=== PATIENT | female | born 1935 | race Caucasian/White ===

== ENCOUNTER 2018-09-22 09:31 | Emergency (ER) | payer OTHER ==
[~2018-09-22] VITALS: Ht 157.5 cm; Wt 66.2 kg
[2018-09-22] MEDS ORDERED: ORAPRED ODT10 MG PO (09:39)
[2018-09-22] MEDS ORDERED: METHOTREXA25 MG/1 M5 IJ (09:40)
[2018-09-22] MEDS ORDERED: AVAPRO300 MG PO (09:40)
== END 2018-09-22 13:58 | disposition home or self-care (01) ==
LOC: ER 09:31
DX: J06.9 Acute upper respiratory infection, unspecified (principal); E86.0 Dehydration

== ENCOUNTER 2019-01-27 08:15 | Emergency (ER) | payer OTHER ==
[~2019-01-27] VITALS: Ht 248.9 cm; Wt 68.9 kg
[~2019-01-27 08:15] MED LIST: AVAPRO300 MG PO; METHOTREXA25 MG/1 M5 IJ; ORAPRED ODT10 MG PO
[2019-01-27] MEDS ORDERED: LEXAPRO20 MG PO (08:32)
[2019-01-27] MEDS ORDERED: COZAAR50 MG PO (08:32)
== END 2019-01-27 14:30 | disposition home or self-care (01) ==
LOC: ER 08:15
DX: R07.89 Other chest pain (principal)

== ENCOUNTER 2021-05-19 16:44 | Emergency (ER) | payer OTHER ==
[~2021-05-19] VITALS: Ht 160 cm; Wt 79.4 kg
[~2021-05-19 16:44] MED LIST changes: +COZAAR50 MG PO; +LEXAPRO20 MG PO
[2021-05-19] MEDS ORDERED: DICLOFENAC SODI75 MG PO (18:26)
== END 2021-05-19 19:05 | disposition home or self-care (01) ==
LOC: ER 16:44
DX: M94.0 Chondrocostal junction syndrome [Tietze] (principal); R07.89 Other chest pain

== ENCOUNTER 2021-12-16 15:17 | Emergency (ER) | payer OTHER ==
[~2021-12-16] VITALS: Ht 157.5 cm; Wt 68.0 kg
[~2021-12-16 15:17] MED LIST changes: +DICLOFENAC SODI75 MG PO
[2021-12-16] MEDS ORDERED: ARICEPT5 MG PO (15:48)
[2021-12-16] MEDS ORDERED: CLONAZEPAM1 M1 PO (15:49)
== END 2021-12-16 18:09 | disposition home or self-care (01) ==
LOC: ER 15:17
DX: S42.352A Displaced comminuted fracture of shaft of humerus, left arm, initial encounter for closed fracture (principal); S00.83XA Contusion of other part of head, initial encounter; W06.XXXA Fall from bed, initial encounter; Y92.013 Bedroom of single-family (private) house as the place of occurrence of the external cause; Z88.0 Allergy status to penicillin; Z88.2 Allergy status to sulfonamides; I10 Essential (primary) hypertension; F03.90 Unspecified dementia, unspecified severity, without behavioral disturbance, psychotic disturbance, mood disturbance, and anxiety